=== PATIENT | male | born 1985 | race Hispanic/Latino ===

== ENCOUNTER 2016-12-25 07:12 | Emergency (ER) | payer OTHER ==
[2016-12-25 07:28] VITALS: BMI 27.5
--- NOTE | 2016-12-25 07:50 | ED PDOC ---
HPI: Chest Pain Time Seen by Provider: 12/25/16 07:23 Chief Complaint (Nursing): Chest Pain Chief Complaint (Provider): Chest Pain History Per: Patient History/Exam Limitations: no limitations Onset/Duration Of Symptoms: Days (x2) Current Symptoms Are (Timing): Still Present Additional Complaint(s): Scotty Acosta is a 31 year old male with a history of hypertension that presents to the ED with a chief complaint of left-sided chest pain that radiates to his left shoulder that he has been experiencing for the past two days. Patient reports that his pain is constant, and worsens with palpation of his left chest. He states he has had poor sleeping habits for the past two nights, and that this morning he had an episode of hyperventilation that left him feeling very dizzy, prompting his visit to the ED. Patient took Motrin for pain with minimal relief, and denies any cough, fever, dyspnea, or lower extremity swelling. Of Note: Patient recently moved to the area. Has no family history of premature cardiac disease. Past Medical History Reviewed: Historical Data, Nursing Documentation, Vital Signs Vital Signs: Last Vital Signs Temp 98.2 F 12/25/16 12:31 Pulse 64 12/25/16 12:31 Resp 16 12/25/16 12:31 BP 131/91 H 12/25/16 12:31 Pulse Ox 96 12/25/16 12:31 - Medical History PMH: Asthma, HTN (takes Amlodipine and diuretic) - Surgical History Surgical History: No Surg Hx - Family History Family History: States: No Known Family Hx - Social History Current smoker - smoking cessation education provided: No Alcohol: Social - Immunization History Hx Tetanus Toxoid Vaccination: No Hx Influenza Vaccination: No Hx Pneumococcal Vaccination: No - Allergies Allergies/Adverse Reactions: Allergies Allergy/AdvReac Type Severity Reaction Status Date / Time Sulfa (Sulfonamide Allergy RASH Verified 12/25/16 07:28 Antibiotics) Review of Systems Constitutional: Positive for: Other (Insomnia). Negative for: Fever Cardiovascular: Positive for: Chest Pain Respiratory: Negative for: Cough Physical Exam - Reviewed Nursing Documentation Reviewed: Yes Vital Signs Reviewed: Yes - Physical Exam Appears: Positive for: Non-toxic. Negative for: No Acute Distress (Patient appears anxious.) Head Exam: Positive for: ATRAUMATIC, NORMOCEPHALIC Skin: Positive for: Normal Color, Warm Cardiovascular/Chest: Positive for: Regular Rate, Rhythm. Negative for: Edema, Murmur Respiratory: Positive for: Normal Breath Sounds. Negative for: Wheezing Neurologic/Psych: Positive for: Alert, Oriented. Negative for: Motor/Sensory Deficits - Laboratory Results Result Diagrams: 12/25/16 08:52 12/25/16 08:52 Medical Decision Making Medical Decision Making: Impression: Chest Pain of Patient with one risk factor Plan: * EKG * BNP * CMP * CBC * D-Dimer * PTT * Ppatient * Urine Drug Screen * Chest X-Ray EKG shows NSR at [address] changes and normal intervals. Patient will be given Ativan 0.5 mg IV for anxiety. Repeat EKG remains normal CXR no acute infiltrate or pneumothorax Repeat trop neg [employer] database query revealed klonopin 1mg 60pills filled mid December in [place], addresses do match license provided, also multiple other Rx for same from multiple providers. Patient was not honest with provider in terms of his benzo use. His urine does not demonstrate benzos. Pt states he has not taken pills in several days, but does refill each month. I expressed concern for benzo abuse or misuse and stated he will not be Rx benzos or controlled substances from this institution again. Scribe Attestation: Documented by Janay Chavez, acting as a scribe for Arvin Cordero DO. Provider Scribe Attestation: All medical record entries made by the Scribe were at my direction and personally dictated by me. I have reviewed the chart and agree that the record accurately reflects my personal performance of the history, physical exam, medical decision making, and the department course for this patient. I have also personally directed, reviewed, and agree with the discharge instructions and disposition. Disposition - Clinical Impression Clinical Impression: Chest pain, Anxiety Counseled Patient/Family Regarding: Studies Performed, Diagnosis, Need For Followup, Rx Given - Disposition Referrals: Margarita Bradford MD [Staff Provider] - Disposition: Routine/Home Disposition Time: 13:21 Condition: STABLE Additional Instructions: Prescription monitoring database demonstrated 22 prescriptions for benzodiazepines from multiple providers from your name and addresses. If this is not you, call police immediately. You will not be prescribed controlled substances from this facility. See director water and waste services for further testing if symptoms persist. Instructions: Anxiety (ED), Chest Pain (ED)
[2016-12-25 08:59] LABS: BASO # 0.1 K/uL (0.0-0.2); BASO % 0.7 % (0.0-2.0); EOS # 0.6 K/uL (0.0-0.7); EOS % 4.6 % (0.0-4.0); HEMOGLOBIN 16.2 g/dL (12.0-18.0); LYMPH # 3.5 K/uL (1.0-4.3); LYMPH % 25.7 % (20.0-40.0); MEAN CELL VOLUME 91.6 fl (80.0-94.0); MEAN CORPUSCULAR HEMOGLOBIN 30.8 pg (27.0-31.0); MEAN CORPUSCULAR HGB CONC 33.7 g/dL (33.0-37.0); MEAN PLATELET VOLUME 7.5 fl (7.2-11.7); MONO # 1.4 K/uL (0.0-0.8); MONO % 10.5 % (0.0-10.0); NEUT # 7.9 K/uL (1.8-7.0); NEUT % 58.5 % (50.0-75.0); NRBC % 0.3 % (0.0-0.0); RBC 5.26 Mil/uL (4.40-5.90); RED CELL DISTRIBUTION WIDTH 12.9 % (11.5-14.5); WHITE BLOOD COUNT 13.5 K/uL (4.8-10.8)
[2016-12-25 09:09] LABS: ALB/GLOB RATIO 1.5 (1.0-2.1); ALBUMIN 4.1 g/dL (3.5-5.0); ALT/SGPT 48 U/L (21-72); AST/SGOT 34 U/L (17-59); BLOOD UREA NITROGEN 9 mg/dl (9-20); GFR AFRICAN-AMERICAN > 60; GFR NON-AFRICAN AMERICAN > 60
[2016-12-25 09:28] LABS: B-TYPE NATRIURETIC PEPTIDE 74.1 pg/ml (0-450); INR 0.9 (0.9-1.2); PARTIAL THROMBOPLASTIN TIME 27.7 Seconds (25.6-37.1); PROTHROMBIN TIME 10.4 Seconds (9.8-13.1)
[2016-12-25 10:29] LABS: BARBITURATES, UR NEGATIVE (NEGATIVE); BENZODIAZEPINES, UR NEGATIVE (NEGATIVE); OPIATES, UR NEGATIVE (NEGATIVE); PHENCYCLIDINE, UR NEGATIVE (NEGATIVE)
[2016-12-25 12:32] VITALS: TEMP 98.2
[2016-12-25 13:33] VITALS: BP 119/81; PULSE 68; RESP 18; O2SAT 99
--- NOTE | 2016-12-25 17:10 | RAD ---
HISTORY: chest pain COMPARISON: None available. TECHNIQUE: Chest PA and lateral FINDINGS: Examination limited by habitus. LUNGS: No focal consolidation. Please note that chest x-ray has limited sensitivity for the detection of pulmonary masses. PLEURA: No significant pleural effusion identified. No definite pneumothorax . CARDIOVASCULAR: The cardiomediastinal silhouette appears within normal limits of size. OSSEOUS STRUCTURES: No acute osseous abnormality identified. VISUALIZED UPPER ABDOMEN: Unremarkable. OTHER FINDINGS: None. IMPRESSION: No focal consolidation, significant pleural effusion, or definite pneumothorax identified.
--- NOTE | 2016-12-26 13:51 | CARD ---
APPROVED REPORT EKG Measurement Heart [id number] <Conclusion> Normal sinus rhythm Normal ECG
--- NOTE | 2016-12-26 13:53 | CARD ---
APPROVED REPORT EKG Measurement Heart [id number] <Conclusion> Normal sinus rhythm Normal ECG
== END 2016-12-25 13:33 | disposition home or self-care (01) ==
LOC: H.ER 07:12
DX: F41.9 Anxiety disorder, unspecified (principal); R07.89 Other chest pain; I10 Essential (primary) hypertension; J45.909 Unspecified asthma, uncomplicated